=== PATIENT | female | born 1950 | race Two or more races ===

== ENCOUNTER 2021-10-03 07:33 | Outpatient (CLI) | payer OTHER | END 2021-10-03 07:35 | disposition home or self-care (01) | LOC: RX STUDY 07:33 | PROVIDERS: ATTEND Internal Medicine Gastroenterology | DX: R13.10 Dysphagia, unspecified (principal); K44.9 Diaphragmatic hernia without obstruction or gangrene; K29.00 Acute gastritis without bleeding ==